=== PATIENT | male | born 1980 | race Caucasian/White ===

== ENCOUNTER 2017-03-11 07:11 | Emergency (ER) | payer OTHER ==
[2017-03-11 07:29] VITALS: BP 143/82
[2017-03-11] MEDS ORDERED: Acetaminophen TAB* 325 MG PO ONE (08:07)
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
== END 2017-03-11 08:25 | disposition home or self-care (01) ==
LOC: UCEAST 07:11
DX: S00.212A Abrasion of left eyelid and periocular area, initial encounter (principal); Y92.9 Unspecified place or not applicable; S60.414A Abrasion of right ring finger, initial encounter; S80.211A Abrasion, right knee, initial encounter; Y09 Assault by unspecified means
CPT/HCPCS: 99212; A9270-GY; G0463